=== PATIENT | female | born 1940 | race Caucasian/White ===

== ENCOUNTER 2022-09-13 09:17 | Outpatient (CLI) | payer MEDICARE, BC ==
[2022-09-13] MEDS ORDERED: Iopamidol 300 61% 100 ML VIAL FS ONE (10:40)
== END 2022-09-13 09:18 | disposition home or self-care (01) ==
LOC: CSHCT 09:17
PROVIDERS: ATTEND Nurse Practitioner Family
DX: R60.0 Localized edema (principal); M62.9 Disorder of muscle, unspecified; N32.89 Other specified disorders of bladder; D25.9 Leiomyoma of uterus, unspecified
CPT/HCPCS: 82565